=== PATIENT | female | born 1975 | race Caucasian/White ===

== ENCOUNTER 2016-09-20 08:04 | Emergency (ER) | payer BC, MEDICARE ==
[2016-09-20] MEDS ORDERED: MORPHINE SULFATE 10 MG/ML INJ IV ONE (10:09)
[2016-09-20] MEDS ORDERED: NORMAL SALINE 1000 ML 1,000 ML IV ONE (10:09)
[2016-09-20] MEDS ORDERED: ONDANSETRON HCL INJ/PF 4 MG/2 ML SDV IV ONE (10:09)
[2016-09-20] MEDS ORDERED: MAG HYDROX/AL HYDROX/SIMETH SUSP 30 ML UDCUP PO ONE (10:10)
[2016-09-20] MEDS ORDERED: LIDOCAINE 2% VISCOUS SOLN 20 ML UDCUP PO ONE (10:10)
--- NOTE | 2016-09-20 10:15 | ER Document Report ---
ED GI/ - General Mode of Arrival: Ambulatory Information source: Patient TRAVEL OUTSIDE OF THE [place] IN LAST 30 DAYS: No - HPI Patient complains to provider of: Abdominal pain Onset: This morning Timing/Duration: Sudden, Waxing and waning Associated symptoms: Nausea, Vomiting <AIDA URENA - Last Filed: 09/20/16 10:08> <EDUARDO WHARTON - Last Filed: 09/20/16 13:38> - General Chief Complaint: Abdominal Pain Stated Complaint: ABDOMINAL PAIN Notes: Patient is a 41-year-old female presenting to the emergency department concerned of sharp abdominal pain across her upper abdomen onset this morning. Patient states that she felt bloated upon awakening and the sharp pain came shortly after. Patient states the pain is waxing and waning and that she became nauseous and has vomited bile one time. 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 Patient denies any fever or cough. Patient has a history of kidney and pancreas transplant in 2013 at [place]. Patient's primary care provider is Emilee Prince. 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 Family History: Reviewed & Not Pertinent, DM Patient has suicidal ideation: No Patient has homicidal ideation: No - Past Medical History Cardiac Medical History: Reports: Hx Hypertension - hx of (not since transplant) Pulmonary Medical History: Reports: Hx Bronchitis Endocrine Medical History: Reports: Hx Diabetes Mellitus Type 1 - not since transplant Renal/ Medical History: Reports: Other - Kidney/Pancreas transplant 2013 GI Medical History: Reports: Hx Gastroesophageal Reflux Disease Psychiatric Medical History: Reports: Hx Anxiety, Hx Depression Past Surgical History: Reports: Hx Kidney (Renal Surgery) - Hx kidney/pancreas transplant 2013 - Immunizations Hx Diphtheria, Pertussis, Tetanus Vaccination: Yes Hx Pneumococcal Vaccination: 07/10/13 <AIDA URENA - Last Filed: 09/20/16 10:08> Review of Systems - Review of Systems Constitutional: No symptoms reported. denies: Fever EENT: No symptoms reported Cardiovascular: No symptoms reported Respiratory: No symptoms reported. denies: Cough Gastrointestinal: See HPI, Abdominal pain, Nausea, Vomiting Genitourinary: No symptoms reported Female Genitourinary: No symptoms reported Musculoskeletal: No symptoms reported Skin: No symptoms reported Hematologic/Lymphatic: No symptoms reported Neurological/Psychological: No symptoms reported -: Yes All other systems reviewed and negative <AIDA URENA - Last Filed: 09/20/16 10:08> Physical Exam - Vital signs Interpretation: Normal - General General appearance: Alert - HEENT Head: Normocephalic, Atraumatic Eyes: Normal Pupils: PERRL - Respiratory Respiratory status: No respiratory distress Chest status: Nontender Breath sounds: Normal Chest palpation: Normal - Cardiovascular Rhythm: Regular Heart sounds: Normal auscultation Murmur: No - Abdominal Inspection: Obese Distension: No distension Bowel sounds: Normal Tenderness: Tender - RUQ tender to palpation Organomegaly: No organomegaly - Back Back: Normal, Nontender - Extremities General upper extremity: Normal inspection, Nontender, Normal color, Normal ROM , Normal temperature General lower extremity: Normal inspection, Nontender, Normal color, Normal ROM , Normal temperature, Normal weight bearing - Neurological Neuro grossly intact: Yes Cognition: Normal Orientation: AAOx4 [place] Coma Scale Eye Opening: Spontaneous Mariah Coma Scale Verbal: Oriented Mariah Coma Scale Motor: Obeys Commands Mariah Coma Scale Total: 15 Speech: Normal - Psychological Associated symptoms: Normal affect, Normal mood - Skin Skin Temperature: Warm Skin Moisture: Dry Skin Color: Normal <AIDA URENA - Last Filed: 09/20/16 10:08> Course <AIDA URENA - Last Filed: 09/20/16 10:08> - Laboratory Result Diagrams: 09/20/16 11:20 09/20/16 11:20 <EDUARDO WHARTON - Last Filed: 09/20/16 13:38> - Re-evaluation Re-evalutation: 09/20/16 13:37 The patient reports that she did notice her epigastric abdominal discomfort improving after the GI cocktail. Her ultrasound was normal. The lab work is normal. She reports she used to take omeprazole on a daily basis in the past but has not for quite some time now. (EDUARDO WHARTON) - Vital Signs Vital signs: Temp Pulse Resp BP Pulse Ox 98.0 F 84 20 116/77 98 09/20/16 08:12 09/20/16 08:12 09/20/16 08:12 09/20/16 08:12 09/20/16 08:12 (AIDA URENA) (EDUARDO WHARTON) - Laboratory Laboratory results interpreted by me: 09/20/16 09/20/16 11:20 11:20 Plt Count 452 H Seg Neuts % (Manual) 79 H Calcium 10.6 H (EDUARDO WAHRTON) Discharge <AIDA URENA - Last Filed: 09/20/16 10:08> <EDUARDO WHARTON - Last Filed: 09/20/16 13:38> - Discharge Clinical Impression: Reflux esophagitis Abdominal pain Qualifiers: Abdominal location: upper abdomen, unspecified Qualified Code(s): R10.10 - Upper abdominal pain, unspecified Condition: Stable Disposition: HOME, SELF-CARE Additional Instructions: Reflux Disease (GERD): Gastro-Esophageal Reflux Disease (GERD) is caused by stomach acid refluxing back up into the esophagus. The valve at the end of the esophagus may be weak. This is common in persons with a hiatal hernia. GERD symptoms can include indigestion, chest pain, heartburn, or food "sticking." Certain foods, alcohol, and aspirin can make GERD worse. Treatment depends on the severity. Usually, antacids or acid-suppressing medicines are used. When the esophagus is acutely inflamed, the physician will often prescribe membrane-protective drugs such as Carafate. Some patients benefit from medication such as Reglan that tightens the valve at the top of the stomach. Avoid those foods that bring on your symptoms. For many people, these foods are coffee, chocolate, onions, garlic, and carbonated drinks. Don't use alcohol, aspirin, caffeine, or tobacco. Don't eat late at night -- within 4 hours of bedtime. Don't over-eat. If necessary, elevate the head of your bed about 4 inches so that stomach acid will not roll up into your esophagus. Call the doctor if you develop severe chest pain, inability to swallow fluids, fever, or worsening symptoms. //////////////////////////////////////////////////////////////////////////////// //////////////////////////////////////////////////////////////////////////////// ////////////// Your symptoms seem most likely to be to reflux. Your what blood cell count, likewise, and kidney function along with pancreatic enzymes and liver enzymes are all normal. Your urine does not show signs of infection today. Take omeprazole 20 mg on a daily basis 30 minutes before meal for the next week. Take antacids between meals and at bedtime. Eat a bland diet and avoid spicy, carbonated, and acidic foods and fluids. Follow-up with your doctor if not improving. RETURN TO THE EMERGENCY ROOM IF ANY NEW OR WORSENING SYMPTOMS. Scribe Attestation: 09/20/16 13:37 I personally performed the services described in the documentation, reviewed and edited the documentation which was dictated to the scribe in my presence, and it accurately records my words and actions. (EDUARDO WHARTON) Scribe Documentation <AIDA URENA - Last Filed: 09/20/16 10:08> <EDUARDO WHARTON - Last Filed: 09/20/16 13:38> - Scribe Written by Scribe:: EDUARDO WHARTON MD, SCRIBE 09/20/16 [id number] Acting as scribe for: Dr. Wharton (AIDA URENA) (EDUARDO WHARTON)
[2016-09-20 11:44] LABS: HEMATOCRIT 46.3 % (36.0-47.0); HEMOGLOBIN 15.4 g/dL (12.0-15.5); HGB HCT DIFFERENCE -0.1; MEAN CORPUSCULAR HEMOGLOBIN 30.5 pg (27.0-33.4); MEAN CORPUSCULAR HGB CONC 33.2 g/dL (32.0-36.0); MEAN CORPUSCULAR VOLUME 92 fl (80-97); RED BLOOD COUNT 5.04 10^6/uL (3.72-5.28); RED CELL DISTRIBUTION WIDTH 13.6 % (11.5-14.0); WHITE BLOOD COUNT 9.8 10^3/uL (4.0-10.5)
[2016-09-20 11:46] LABS: APPEARANCE,URINE CLEAR; BILIRUBIN,URINE NEGATIVE (NEGATIVE); GLUCOSE, URINE NEGATIVE (NEGATIVE); KETONES,URINE NEGATIVE (NEGATIVE); LEUKOCYTE ESTERASE,URINE NEGATIVE (NEGATIVE); NITRITE,URINE NEGATIVE (NEGATIVE); PROTEIN,URINE NEGATIVE (NEGATIVE); URINE SPECIFIC GRAVITY 1.009; UROBILINOGEN,URINE NEGATIVE mg/dL (<2.0)
[2016-09-20 12:02] LABS: ALANINE AMINOTRANSFERASE 33 U/L (9-52); ALBUMIN 3.9 g/dL (3.5-5.0); ALKALINE PHOSPHATASE 82 U/L (38-126); ANION GAP 9 (5-19); ASPARTATE AMINO TRANSFERASE 24 U/L (14-36); BILIRUBIN,TOTAL 0.4 mg/dL (0.2-1.3); BLOOD UREA NITROGEN 14 mg/dL (7-20); CALCIUM 10.6 mg/dL (8.4-10.2); CARBON DIOXIDE 28 mmol/L (22-30); CHLORIDE 104 mmol/L (98-107); CREATININE RESULT 0.77 mg/dL (0.52-1.25); GLUCOSE 91 mg/dL (75-110); LIPASE 80.2 U/L (23-300); SODIUM 141.1 mmol/L (137-145); TOTAL PROTEIN 6.5 g/dL (6.3-8.2)
[2016-09-20 12:12] LABS: BASOPHILS % (MANUAL) 1 % (0-2); EOSINOPHILS % (MANUAL) 1 % (0-6); LYMPHOCYTES % (MANUAL) 14 % (13-45); TOTAL CELLS COUNTED 100
[2016-09-20 12:13] LABS: RBC MORPHOLOGY COMMENT NORMO-CYTIC/CHROMIC
[2016-09-20 13:39] VITALS: BP 102/66
== END 2016-09-20 13:50 | disposition home or self-care (01) ==
LOC: ER 08:04
DX: K21.0 Gastro-esophageal reflux disease with esophagitis (principal); R10.9 Unspecified abdominal pain; I10 Essential (primary) hypertension; R10.10 Upper abdominal pain, unspecified
CPT/HCPCS: 99284; 96361; 96374; 96375; 36415; 87040; 83690; 84703; 85025; 80053; 81001; 76705; J3490; J2270; J2405; J7030

== ENCOUNTER 2017-07-09 09:53 | Emergency (ER) | payer SELFPAY ==
[2017-07-09] MEDS ORDERED: NORMAL SALINE 1000 ML 1,000 ML IV ONE (10:15)
--- NOTE | 2017-07-09 10:16 | ER Document Report ---
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 She states she woke up this morning with some pain around the transplant area as well as feeling as if she is retaining fluid. TRAVEL OUTSIDE OF THE [place] IN LAST 30 DAYS: No - Related Data Allergies/Adverse Reactions: No Known Allergies Allergy (Verified 07/09/17 09:58) Past Medical History - Social History Chew tobacco use (# tins/day): No Frequency of alcohol use: None Drug Abuse: None - Past Medical History Cardiac Medical History: Reports: Hx Hypertension - hx of (not since transplant) Pulmonary Medical History: Reports: Hx Bronchitis Endocrine Medical History: Reports: Hx Diabetes Mellitus Type 1 - not since transplant Renal/ Medical History: Denies: Hx Peritoneal Dialysis GI Medical History: Reports: Hx Gastroesophageal Reflux Disease Psychiatric Medical History: Reports: Hx Anxiety, Hx Depression Past Surgical History: Reports: Hx Kidney (Renal Surgery) - Hx kidney/pancreas transplant 2013 - Immunizations Hx Diphtheria, Pertussis, Tetanus Vaccination: Yes Physical Exam - Vital signs Vitals: Temp Pulse Resp BP Pulse Ox 98.4 F 96 18 131/86 H 97 07/09/17 10:00 07/09/17 10:07/09/17 10:07/09/17 10:00 07/09/17 10:00 Course - Vital Signs Vital signs: Temp Pulse Resp BP Pulse Ox 98.4 F 96 18 131/86 H 97 07/09/17 10:07/09/17 10:00 07/09/17 10:00 07/09/17 10:00 07/09/17 10:00
[2017-07-09 11:03] LABS: ABSOLUTE BASOPHILS # (AUTO) 0.1 10^3/uL (0.0-0.2); ABSOLUTE EOSINOPHILS # (AUTO) 0.2 10^3/uL (0.0-0.6); ABSOLUTE LYMPHOCYTES (AUTO) 2.7 10^3/uL (0.5-4.7); ABSOLUTE MONOCYTES (AUTO) 2.1 10^3/uL (0.1-1.4); ABSOLUTE NEUT (AUTO) 9.4 10^3/uL (1.7-8.2); BASOPHILS % (AUTO) 0.7 % (0-2); EOSINOPHILS % (AUTO) 1.4 % (0-6); HEMATOCRIT 45.8 % (36.0-47.0); HEMOGLOBIN 15.5 g/dL (12.0-15.5); HGB HCT DIFFERENCE 0.7; LYMPHOCYTES % (AUTO) 18.4 % (13-45); MEAN CORPUSCULAR HEMOGLOBIN 31.3 pg (27.0-33.4); MEAN CORPUSCULAR HGB CONC 33.9 g/dL (32.0-36.0); MEAN CORPUSCULAR VOLUME 92 fl (80-97); MONOCYTES % (AUTO) 14.4 % (3-13); RED BLOOD COUNT 4.96 10^6/uL (3.72-5.28); RED CELL DISTRIBUTION WIDTH 12.7 % (11.5-14.0); SEGMENTED NEUTROPHILS % (AUTO) 65.1 % (42-78); WHITE BLOOD COUNT 14.5 10^3/uL (4.0-10.5)
[2017-07-09 11:22] LABS: APPEARANCE,URINE CLOUDY; BILIRUBIN,URINE NEGATIVE (NEGATIVE); GLUCOSE, URINE NEGATIVE (NEGATIVE); KETONES,URINE NEGATIVE (NEGATIVE); LEUKOCYTE ESTERASE,URINE LARGE (NEGATIVE); NITRITE,URINE POSITIVE (NEGATIVE); PROTEIN,URINE NEGATIVE (NEGATIVE); URINE SPECIFIC GRAVITY 1.008; UROBILINOGEN,URINE NEGATIVE mg/dL (<2.0)
[2017-07-09 12:00] LABS: ALANINE AMINOTRANSFERASE 27 U/L (9-52); ALBUMIN 3.7 g/dL (3.5-5.0); ALKALINE PHOSPHATASE 86 U/L (38-126); ANION GAP 10 (5-19); ASPARTATE AMINO TRANSFERASE 18 U/L (14-36); BILIRUBIN,DIRECT 0.2 mg/dL (0.0-0.4); BILIRUBIN,TOTAL 0.8 mg/dL (0.2-1.3); BLOOD UREA NITROGEN 11 mg/dL (7-20); CALCIUM 9.7 mg/dL (8.4-10.2); CARBON DIOXIDE 22 mmol/L (22-30); CHLORIDE 108 mmol/L (98-107); CREATININE RESULT 0.75 mg/dL (0.52-1.25); GLUCOSE 89 mg/dL (75-110); POTASSIUM 3.6 mmol/L (3.6-5.0); SODIUM 139.9 mmol/L (137-145); TOTAL PROTEIN 6.5 g/dL (6.3-8.2)
[2017-07-09] MEDS ORDERED: MORPHINE SULFATE 10 MG/ML INJ IV ONE (12:16)
--- NOTE | 2017-07-09 12:23 | ER Document Report ---
ED General - General Chief Complaint: Abdominal Pain Stated Complaint: LEFT SIDE ABDOMINAL PAIN Time Seen by Provider: 07/09/17 10:15 TRAVEL OUTSIDE OF THE [place] IN LAST 30 DAYS: No - HPI Notes: Patient is a 41-year-old female with a history of pancreas and kidney transplant through [place] who presents the ED complaining of urinary burning, urgency, frequency, suprapubic pain, and left abdominal pain 2-3 days with initial mild urinary symptoms beginning about 4-5 days ago. Patient states that she does have a history of UTIs, but had to be admitted last winter for similar situation and was in the hospital for 5 days. 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 Seals in [place]. Patient states that she is on tacrolimus, prednisone, and CellCept status post transplant. Patient states that she does have decreased oral intake and weakness as well. She has not had anything for her symptoms. She denies any drug allergies. Patient's other medical history consists of hypertension. Denies any headache, fever, neck pain, URI, sore throat, chest pain, palpitations, syncope, cough, shortness of breath, wheeze, dyspnea, nausea/vomiting/diarrhea, back pain, loss of control of bowel or bladder, numbness/tingling, saddle anesthesia, muscle paralysis/weakness, or rash. - Related Data Allergies/Adverse Reactions: No Known Allergies Allergy (Verified 07/09/17 09:58) Past Medical History - Social History Smoking Status: Never Smoker Chew tobacco use (# tins/day): No Frequency of alcohol use: None Drug Abuse: None Family History: Reviewed & Not Pertinent, DM Patient has suicidal ideation: No Patient has homicidal ideation: No - Past Medical History Cardiac Medical History: Reports: Hx Hypertension - hx of (not since transplant) Pulmonary Medical History: Reports: Hx Bronchitis Endocrine Medical History: Reports: Hx Diabetes Mellitus Type 1 - not since transplant Renal/ Medical History: Denies: Hx Peritoneal Dialysis GI Medical History: Reports: Hx Gastroesophageal Reflux Disease Psychiatric Medical History: Reports: Hx Anxiety, Hx Depression Past Surgical History: Reports: Hx Kidney (Renal Surgery) - Hx kidney/pancreas transplant 2013 - Immunizations Hx Diphtheria, Pertussis, Tetanus Vaccination: Yes Hx Pneumococcal Vaccination: 07/10/13 Review of Systems - Review of Systems Notes: REVIEW OF SYSTEMS: CONSTITUTIONAL: see hpi. Denies fever, chills, or sweats. Denies recent illness. EENT: Denies eye, ear, throat, or mouth pain or symptoms. Denies nasal or sinus congestion or discharge. Denies throat, tongue, or mouth swelling or difficulty swallowing. CARDIOVASCULAR: Denies chest pain. Denies palpitations or racing or irregular heart beat. Denies ankle edema. RESPIRATORY: Denies cough, cold, or chest congestion. Denies shortness of breath, difficulty breathing, or wheezing. GASTROINTESTINAL: see hpi GENITOURINARY: see hpi MUSCULOSKELETAL: Denies back or neck pain or stiffness. Denies joint pain or swelling. SKIN: Denies rash, lesions or sores. NEUROLOGICAL: Denies confusion or altered mental status. Denies passing out or loss of consciousness. Denies dizziness or lightheadedness. Denies headache. Denies weakness or paralysis or loss of use of either side. Denies problems with gait or speech. Denies sensory loss, numbness, or tingling. ALL OTHER SYSTEMS REVIEWED AND NEGATIVE. Dictation was performed using [employer] voice recognition software Physical Exam - Vital signs Vitals: Temp Pulse Resp BP Pulse Ox 98.4 F 96 18 131/86 H 97 07/09/17 10:00 07/09/17 10:00 07/09/17 10:00 07/09/17 10:00 07/09/17 10:00 Notes: PHYSICAL EXAMINATION: GENERAL: Well-appearing, well-nourished and in no acute distress. HEAD: Atraumatic, normocephalic. EYES: Pupils equal round and reactive to light, extraocular movements intact, sclera anicteric, conjunctiva are normal. ENT: Nares patent and without discharge. oropharynx clear without exudates. No tonsilar hypertrophy or erythema. Moist mucous membranes. No sinus tenderness. NECK: Normal range of motion, supple without lymphadenopathy LUNGS: Breath sounds clear to auscultation bilaterally and equal. No wheezes rales or rhonchi. HEART: Regular rate and rhythm without murmurs, rubs, gallops. ABDOMEN: Soft, nondistended abdomen. No masses appreciated. Normal bowel sounds present. No CVA tenderness bilaterally. + suprapubic and left sided tenderness with mild guarding. Musculoskeletal: FROM to passive/active. Strength 5+/5. Extremities: No cyanosis, clubbing, or edema b/l. Peripheral pulses 2+. Capillary refill less than 3 seconds. NEUROLOGICAL: Cranial nerves grossly intact. Normal speech, normal gait. Normal sensory, motor exams PSYCH: Normal mood, normal affect. SKIN: Warm, Dry, normal turgor, no rashes or lesions noted. Course - Re-evaluation Re-evalutation: 07/09/17 12:26 Patient is an afebrile, well-hydrated, 41-year-old female who presents the ED with a UTI, possible pyelonephritis. Vitals are currently stable. Reviewed case with Dr. Merritt. Because patient is on so many immunosuppressive medications, she may not develop a true fever. He recommended I discuss with her cell feed department supervisor. I did call [facility] and gave report for Dr. Seals to call me back. Patient currently has a white count of 14.5 and a urinalysis showing nitrites, large leuks, white blood cell clumps. 07/09/17 12:[address] Seals. Her vitals and labs seem stable for trial by outpatient therapy with Cipro. I will give her rocephin prior to d/c A small dose of morphine was given for pain Dr. Seals would like her to return or call them with nonimproving symptoms or worsening sx's over the next 24-48hrs. Pt is in agreement with outpatient trial. Pt is able to tolerate PO intake Fluids were also provided in the ED. 07/09/17 12:40 Low suspicion for any sepsis, meningitis, acute abdomen, severe dehydration, or other systemic emergent condition at this time based on H&P. We will send the patient home on Cipro as well as Zofran that she may use if any nausea. Conservative measures for symptoms. Recheck with your PCM this week. Consider consult with Dr. Seals with ongoing/worsening symptoms over the next 24-48 hours. Return to the ED with any worsening/concerning symptoms otherwise as reviewed in discharge. Patient is in agreement. 07/09/17 14:21 Pt is stable and is tolerating PO intake. Discharge stable. - Vital Signs Vital signs: Temp Pulse Resp BP Pulse Ox 98.4 F 96 18 131/86 H 97 07/09/17 10:00 07/09/17 10:00 07/09/17 10:00 07/09/17 10:00 07/09/17 10:00 - Laboratory Result Diagrams: 07/09/17 10:30 07/09/17 11:02 Laboratory results interpreted by me: 07/09/17 07/09/17 07/09/17 10:30 10:30 11:02 WBC 14.5 H Monocytes % 14.4 H Absolute Neutrophils 9.4 H Absolute Monocytes 2.1 H Chloride 108 H Urine Blood SMALL H Urine Nitrite POSITIVE H Ur Leukocyte Esterase LARGE H Discharge - Discharge Clinical Impression: UTI (urinary tract infection) Qualifiers: Urinary tract infection type: site unspecified Hematuria presence: with hematuria Qualified Code(s): N39.0 - Urinary tract infection, site not specified Condition: Stable Disposition: HOME, SELF-CARE Instructions: Urinary Tract Infection ([facility]), Ciprofloxacin ([facility]) Additional Instructions: Push fluids (i.e. water, cranberry juice) Proper hygenic technique Keep the skin clean Tylenol/ibuprofen as needed May use over the counter AZO for burning with urination Take medications as directed F/u with your PCM in 2-3 days for a recheck Consider consult with your Plumber Helper Dr. Seals with ongoing/worsening symptoms over the next 24-48hours. Return to the ED with any worsening symptoms and/or development of fever, headache, chest pain, palpitations, syncope, shortness of breath, trouble breathing, abdominal pain, n/v/d, blood in stool/urine, loss of control of bowel /bladder, urinary retention, or other worsening symptoms that are concerning to you. Prescriptions: Ciprofloxacin HCl [Cipro 500 mg Tablet] 500 mg PO BID #14 tablet Meclizine HCl 25 mg PO TID PRN #15 tablet PRN Reason: Forms: Elevated Blood Pressure Referrals: Dr. Arnel [Other] - Follow up as needed
[2017-07-09] MEDS ORDERED: CEFTRIAXONE 1 GM/D5W RTU 1 GM/50 ML RTUPB IV ONE (12:37)
[2017-07-09 15:07] VITALS: BP 112/69
== END 2017-07-09 15:07 | disposition home or self-care (01) ==
LOC: ER 09:53
DX: N39.0 Urinary tract infection, site not specified (principal); R10.9 Unspecified abdominal pain; Z87.440 Personal history of urinary (tract) infections
CPT/HCPCS: 99284; 96361; 96375; 96365; 36415; 87040; 87086; 85025; 81025; 87088; 80053; 81001; 87186; J2270; J7030; J0696